=== PATIENT | female | born 1930 | race Caucasian/White ===

== ENCOUNTER 2016-10-30 20:49 | Emergency (ER) | payer MEDICARE, OTHER ==
[~2016-10-30 20:49] MED LIST: ASABAYER PO; CALTRAT600 PO; CENTRUM PO; CENTRUM TAB1 TAB PO; CO Q-10100 MG PO; COQ10100 MG PO; COZ50 PO; FOLIC PO; HYDROCHLOROT12.5 MG PO; IMOD PO; KURIC2 % TOP; LAM250 PO; LUBRICATING OP; LUBRICATING OPH; LUTEIN1 CAP PO; NORCO1 TA1 PO; P5 PO; PEP20 PO; PLAQ200B PO; RECLAST IV; REMICADE IV; TREXALL15 MG PO; TREXALL7.5 MG PO
[2016-10-30 21:37] LABS: BASOPHILS 0.5 %; BASOPHILS ABSOLUTE 0.02 10/3/uL (0.0-0.16); EOSINOPHILS ABSOLUTE 0.04 10/3/uL (0.0-0.53); ER CBC TAT 0 Hrs 03 Mins; HEMOGLOBIN 9.8 g/dL (12.0-16.0); LYMPHOCYTES 46.2 %; LYMPHOCYTES ABSOLUTE 1.86 10/3/uL (0.67-4.30); MEAN CORPUS HGB CONC 33.4 g/dL (32.0-36.0); MEAN CORPUSCULAR HEMOGLOB 30.4 pg (26.0-34.0); MEAN PLATELET VOLUME 10.7 fL (9.2-13.0); MONOCYTES 9.4 %; MONOCYTES ABSOLUTE 0.38 10/3/uL (0.21-1.20); NEUTROPHILS 42.9 %; NEUTROPHILS ABSOLUTE 1.73 10/3/uL (2.02-8.40); PLATELET COUNT 175 10/3/uL (150-400); RBC DISTRIBUTION WIDTH 16.4 % (12.0-16.0); RED CELL COUNT 3.22 10/6/uL (4.0-5.6)
[2016-10-30 21:38] LABS: HEMATOCRIT 29.3 % (36.0-48.0); MANUAL DIFF NO %
[2016-10-30 21:44] LABS: INTERNATIONAL NORMAL RATI 1.2 UNITS (-); PROTIME (NOT ORD) 14.6 SEC (12.0-14.5)
[2016-10-30 21:52] LABS: BUN (BLOOD UREA NITROGEN) 19 MG/DL (6-23); CALCIUM, SERUM 8.8 MG/DL (8.5-10.4); CHEST PAIN PROFILE TAT 0 Hrs 18 Mins; CHLORIDE, SERUM 104 MMOL/L (96-112); CO2 (CARBON DIOXIDE) 28 MMOL/L (24-34); CREATININE 1.02 MG/DL (0.55-1.02); GFR AFRICAN AMERICAN 58 ML/MIN (>=60); GFR NON AFRICAN AMERICAN 50 ML/MIN (>=60); GLUCOSE, SERUM 111 MG/DL (60-99); POTASSIUM, SERUM 3.9 MMOL/L (3.5-5.3); SODIUM, SERUM 137 MMOL/L (135-148); TROPONIN I 0.03 NG/ML (<0.05)
[2016-10-30] MEDS ORDERED: PROTONIX PO (22:32)
[2016-10-30] MEDS ORDERED: P5 PO (22:32)
[2016-10-30] MEDS ORDERED: LOP25 PO (22:35)
[2016-10-30] MEDS ORDERED: MTX2.5 PO (22:35)
[2016-10-30] MEDS ORDERED: AMLODIPINE (22:37)
[2016-10-30] MEDS ORDERED: PRESERVISION A1 EAC1 PO (22:37)
[2016-10-30] MEDS ORDERED: CLARIT10 PO (22:37)
[2016-10-30] MEDS ORDERED: MULTI-VIT HP PO (22:38)
[2016-10-30] MEDS ORDERED: ASAB PO (22:38)
== END 2016-10-31 00:28 | disposition home or self-care (01) ==
LOC: ER 20:49
PROVIDERS: Specialist
DX: R07.2 Precordial pain (principal); I10 Essential (primary) hypertension; Z86.73 Personal history of transient ischemic attack (TIA), and cerebral infarction without residual deficits; K21.9 Gastro-esophageal reflux disease without esophagitis; D64.9 Anemia, unspecified; Z90.710 Acquired absence of both cervix and uterus; Z88.1 Allergy status to other antibiotic agents; Z88.8 Allergy status to other drugs, medicaments and biological substances; Z79.52 Long term (current) use of systemic steroids; Z79.82 Long term (current) use of aspirin; Z79.899 Other long term (current) drug therapy
CPT/HCPCS: 71010; 80048; 83735; 84484; 85025; 85610; 85730; 93005; 99285; A9270-GY